=== PATIENT | male | born 1965 | race African-American/Black ===

== ENCOUNTER 2017-05-04 19:58 | Emergency (ER) | payer MEDICAID ==
[~2017-05-04] VITALS: Ht 182.9 cm; Wt 84.0 kg
[2017-05-05 01:10] VITALS: BP 133/74
== END 2017-05-05 01:25 | disposition home or self-care (01) ==
LOC: ER 19:58
DX: M25.512 Pain in left shoulder (principal); F17.210 Nicotine dependence, cigarettes, uncomplicated; W22.09XA Striking against other stationary object, initial encounter; Y93.89 Activity, other specified; Y92.811 Bus as the place of occurrence of the external cause
CPT/HCPCS: 73030; 99284; A4565

== ENCOUNTER 2024-01-27 08:47 | Emergency (ER) | payer MEDICAID ==
[~2024-01-27] VITALS: Ht 182.9 cm; Wt 86.2 kg
[2024-01-27 08:50] VITALS: O2SAT 98
[2024-01-27] MEDS ORDERED: CLOT15CR5 TP (09:19)
[2024-01-27 09:37] VITALS: BP 148/99; PULSE 83; RESP 16; TEMP 98.2
== END 2024-01-27 09:38 | disposition home or self-care (01) ==
LOC: ER 08:47
DX: R21 Rash and other nonspecific skin eruption (principal)
CPT/HCPCS: 99282

== ENCOUNTER 2024-02-28 07:15 | Emergency (ER) | payer MEDICAID ==
[~2024-02-28] VITALS: Ht 182.9 cm; Wt 87.0 kg
[~2024-02-28 07:15] MED LIST: CLOT15CR5 TP
[2024-02-28 07:42] VITALS: TEMP 98; O2SAT 99
[2024-02-28 09:11] LABS: CLARITY URINE CLEAR (CLEAR); COLOR URINE YELLOW (YELLOW); GLUCOSE URINE NEGATIVE (NEGATIVE); KETONES URINE NEGATIVE (NEGATIVE); LEUKOCYTE ESTERASE URINE 1+ (NEGATIVE); NITRITE URINE NEGATIVE (NEGATIVE); OCCULT BLOOD URINE TRACE (NEGATIVE); PH URINE 5.5 (4.5-8.0); PROTEIN URINE NEGATIVE (NEGATIVE); SPECIFIC GRAVITY URINE 1.018 (1.005-1.030); UROBILINOGEN URINE 0.2 E.U./dL (0.2-1.0)
[2024-02-28 09:23] LABS: BACTERIA URINE FEW; RBC URINE NONE SEEN /hpf (0-2); SQUAMOUS EPITHELIAL CELL URINE NONE SEEN /lpf (RARE/1+); YEAST URINE NONE SEEN
[2024-02-28] MEDS ORDERED: LEVO-65 MT (10:41)
[2024-02-28 11:00] VITALS: BP 139/74; PULSE 67; RESP 17
[2024-02-28] MEDS: CEFTRIAXONE SODIUM 500MG VIAL IM ONE (11:00)
== END 2024-02-28 11:15 | disposition home or self-care (01) ==
LOC: ER 07:15
DX: N45.3 Epididymo-orchitis (principal)
CPT/HCPCS: 81003; 93976; 76870; 96372; 99285; J0696; Z7610